=== PATIENT | female | born 1955 | race Caucasian/White ===

== ENCOUNTER 2022-11-30 19:49 | Emergency (ER) | payer OTHER, SELFPAY ==
[2022-11-30 20:41] LABS: SARS-CoV-2 NAA Rapid Test Not Detected (NotDetected)
[2022-11-30] MEDS ORDERED: Dexamethasone 10 MG/ML VIAL ONE (21:25)
[2022-11-30] MEDS ORDERED: Albuterol Sulfate 2.5 mg/3 ml Neb ONE (21:42)
== END 2022-11-30 22:22 ==
LOC: ERS 19:49
DX: R09.81 Nasal congestion (principal); R05.9 Cough, unspecified; R07.89 Other chest pain; I10 Essential (primary) hypertension; Z20.822 Contact with and (suspected) exposure to COVID-19
CPT/HCPCS: 71046; 96372; J1100; J7611

== ENCOUNTER 2022-12-06 14:14 | Emergency (ER) | payer OTHER, MEDICAID ==
[2022-12-06 16:07] LABS: #Eosinphils 0.3 thou/uL (0.0-0.7); #Lymphocytes 1.4 thou/uL (1.20-3.40); #Monocytes 0.7 thou/uL (0.11-0.59); %Basophils 0.3 % (0.0-1.0); %Lymphocytes 16.8 % (21.0-51.0); %Monocytes 7.9 % (0.0-10.0); %Neutrophils 71.9 % (42.0-75.0); Hemoglobin 13.4 g/dL (12.0-16.0); Mean Corpuscular HGB CONC 33.6 g/dL (32.0-36.0); Mean Corpuscular Hemoglobin 33.7 pg (27.0-31.0); Mean Platelet Volume 8.9 fL (7.4-10.4); Platelet Count 226 10x3/uL (130-400); RBC Distribution Width 10.8 % (11.5-14.5); Red Blood Cell (RBC) Count 3.99 mill/uL (4.20-5.40); White Blood Cell (WBC) Count 8.4 10x3/uL (4.8-10.8)
[2022-12-06 16:30] LABS: ALT (SGPT) 13 U/L (8-55); AST (SGOT) 16 U/L (5-34); Albumin 3.9 g/dL (3.4-4.8); Alkaline Phosphatase 73 U/L (40-110); Anion Gap 11 mmol/L (10-20); BUN (Urea Nitrogen) 27 mg/dL (9.8-20.1); Bilirubin, Total 0.3 mg/dL (0.2-1.2); Calc. Creatinine Clearance 0 mL/min (70-130); Calcium 9.2 mg/dL (7.8-10.44); Carbon Dioxide 27 mmol/L (23-31); Chloride 101 mmol/L (98-107); Estimated GFR 69; Globulin 3.5 g/dL (2.4-3.5); Glucose 121 mg/dL (80-115); Potassium 4.3 mmol/L (3.5-5.1); Protein, Total 7.4 g/dL (5.8-8.1); Sodium 135 mmol/L (136-145)
== END 2022-12-06 17:47 | disposition home or self-care (01) ==
LOC: ERS 14:14
DX: R55 Syncope and collapse (principal); R53.83 Other fatigue; I10 Essential (primary) hypertension; Z87.891 Personal history of nicotine dependence
CPT/HCPCS: 36415; 71045; 80053; 83880; 84484; 85025; 93005

== ENCOUNTER 2022-12-12 09:32 | Emergency (ER) | payer OTHER, MEDICARE ==
[2022-12-12 10:15] LABS: #Eosinphils 0.2 thou/uL (0.0-0.7); #Lymphocytes 1.3 thou/uL (1.20-3.40); #Monocytes 0.5 thou/uL (0.11-0.59); %Basophils 0.6 % (0.0-1.0); %Eosinophils 3.2 % (0.0-10.0); %Lymphocytes 21.7 % (21.0-51.0); %Monocytes 8.5 % (0.0-10.0); Hemoglobin 13.4 g/dL (12.0-16.0); Mean Corpuscular HGB CONC 33.6 g/dL (32.0-36.0); Mean Corpuscular Hemoglobin 33.3 pg (27.0-31.0); Mean Platelet Volume 8.8 fL (7.4-10.4); Platelet Count 227 10x3/uL (130-400); RBC Distribution Width 10.8 % (11.5-14.5); Red Blood Cell (RBC) Count 4.02 mill/uL (4.20-5.40); White Blood Cell (WBC) Count 6.1 10x3/uL (4.8-10.8)
[2022-12-12 10:38] LABS: ALT (SGPT) 11 U/L (8-55); AST (SGOT) 14 U/L (5-34); Albumin 3.9 g/dL (3.4-4.8); Alkaline Phosphatase 66 U/L (40-110); Anion Gap 11 mmol/L (10-20); BUN (Urea Nitrogen) 30 mg/dL (9.8-20.1); Bilirubin, Total 0.3 mg/dL (0.2-1.2); Calc. Creatinine Clearance 0 mL/min (70-130); Calcium 9.1 mg/dL (7.8-10.44); Carbon Dioxide 25 mmol/L (23-31); Chloride 105 mmol/L (98-107); Estimated GFR 71; Globulin 3.2 g/dL (2.4-3.5); Glucose 78 mg/dL (80-115); Potassium 3.8 mmol/L (3.5-5.1); Protein, Total 7.1 g/dL (5.8-8.1); Sodium 137 mmol/L (136-145)
== END 2022-12-12 12:02 | disposition home or self-care (01) ==
LOC: ERS 09:32
DX: R55 Syncope and collapse (principal); E86.0 Dehydration; I10 Essential (primary) hypertension; Z87.891 Personal history of nicotine dependence
CPT/HCPCS: 36415; 71045; 80053; 84484; 85025; 93005; 96360